=== PATIENT | male | born 1970 | race Caucasian/White ===

== ENCOUNTER 2018-03-16 15:53 | Emergency (ER) | payer OTHER ==
[~2018-03-16] VITALS: Ht 182.9 cm; Wt 83.9 kg
[~2018-03-16 15:53] MED LIST: KEFLEX500 MG PO
[2018-03-16] MEDS ORDERED: KEFLEX500 M1 PO (16:46)
[2018-03-16 16:49] VITALS: BP 139/88
== END 2018-03-16 16:50 | disposition home or self-care (01) ==
LOC: M.ERS 15:53
DX: S81.811A Laceration without foreign body, right lower leg, initial encounter (principal); E78.00 Pure hypercholesterolemia, unspecified; F17.210 Nicotine dependence, cigarettes, uncomplicated; W26.8XXA Contact with other sharp object(s), not elsewhere classified, initial encounter; Y93.89 Activity, other specified; Y92.89 Other specified places as the place of occurrence of the external cause; Y99.8 Other external cause status

== ENCOUNTER 2019-08-03 08:28 | Emergency (ER) | payer OTHER ==
[~2019-08-03] VITALS: Ht 182.9 cm; Wt 79.4 kg
[~2019-08-03 08:28] MED LIST changes: +KEFLEX500 M1 PO
[2019-08-03] MEDS ORDERED: KEFLEX500 M1 PO (08:39)
== END 2019-08-03 08:50 | disposition home or self-care (01) ==
LOC: M.ERS 08:28
DX: L03.114 Cellulitis of left upper limb (principal); E78.00 Pure hypercholesterolemia, unspecified